=== PATIENT | female | born 1960 | race Caucasian/White ===

== ENCOUNTER 2019-06-21 10:25 | Emergency (ER) | payer MEDICARE, MEDICAID ==
[2019-06-21] MEDS ORDERED: PLAVIX75 MG PO (10:35)
[2019-06-21 11:00] LABS: HEMATOCRIT 42.1 % (37.0-47.0); HEMOGLOBIN 13.7 g/dl (12.0-16.0); IMMATURE GRANULOCYTES 0.3 % (0.0-5.0); MEAN CELL VOLUME 96.3 fL CALC (80.0-100.0); MEAN CORPUSCULAR HGB 31.4 pG CALC (26.0-32.0); MEAN CORPUSCULAR HGB CONC 32.5 g/L CALC (32.0-36.0); NEUT# 5.14 thou/uL (2.00-7.15); RED BLOOD COUNT 4.37 mill/uL (4.20-5.60); RED CELL DISTRI WIDTH 15.2 % (11.5-15.5)
[2019-06-21 11:23] LABS: ALBUMIN 4.9 g/dL (3.2-5.0); ALKALINE PHOSPHATASE 80 u/l (38-126); ANION GAP 16 (6-22 (CALC)); BILIRUBIN, TOTAL 0.4 mg/dL (0.0-1.4); BUN 13 mg/dL (7-17); BUN/CREATININE RATIO 13 (12-20 (CALC)); CARBON DIOXIDE 25 mmol/l (22-30); CHLORIDE 100 mmol/l (95-108); GFR 57 ML/MIN (>=60 (CALC)); GFR FOR AFR.AMER. > 60 ML/MIN (>=60 (CALC)); MAGNESIUM 1.9 mg/dL (1.6-2.3); POTASSIUM 4.5 mmol/l (3.5-5.1); SGOT/AST 87 u/l (14-36); SODIUM 137 mmol/l (137-146); TOTAL PROTEIN 8.3 g/dL (6.3-8.2)
[2019-06-21 11:36] LABS: MYOGLOBIN 421 ng/mL (0 - 62)
[2019-06-21 11:42] LABS: BARBITURATES NEGATIVE (NEGATIVE); COCAINE NEGATIVE (NEGATIVE); METHADONE NEGATIVE (NEGATIVE); OXCYCODONE NEGATIVE (NEGATIVE); TETRAHYDROCANNABIONOL NEGATIVE (NEGATIVE); TRICYLIC ANTIDEPRESSANTS NEGATIVE (NEGATIVE)
[2019-06-21 11:49] LABS: URINE BILIRUBIN - DIPSTICK NEGATIVE (NEGATIVE); URINE BLOOD DIPSTICK NEGATIVE (NEGATIVE); URINE COLOR YELLOW; URINE GLUCOSE - DIPSTICK NEGATIVE (NEGATIVE); URINE KETONE NEGATIVE (NEGATIVE); URINE LEUK ESTERASE NEGATIVE (NEGATIVE); URINE NITRITE - DIPSTICK NEGATIVE (Negative); URINE PROTEIN - DIPSTICK NEGATIVE (NEG-TRACE); URINE UROBILINOGEN - DIPSTICK 0.2 E.U./dL (0.2)
[2019-06-21 11:50] LABS: CPK 2405 u/l (30-165)
[2019-06-21] MEDS ORDERED: SYNTHROID150 MCG PO (12:48)
[2019-06-21 13:09] VITALS: BP 118/72
[2019-08-19] MEDS ORDERED: LISINOPRIL20 MG PO (09:58)
[2019-08-19] MEDS ORDERED: ASPIRIN81 MG PO (09:58)
== END 2019-06-21 13:13 | disposition home or self-care (01) ==
LOC: ED 10:25
PROVIDERS: Family Medicine
DX: E03.9 Hypothyroidism, unspecified (principal); R53.1 Weakness; J44.9 Chronic obstructive pulmonary disease, unspecified; F17.200 Nicotine dependence, unspecified, uncomplicated

== ENCOUNTER 2020-02-14 10:25 | Emergency (ER) | payer MEDICARE, MEDICAID ==
[~2020-02-14] VITALS: Ht 177.8 cm; Wt 100.0 kg
[~2020-02-14 10:25] MED LIST: ASPIRIN81 MG PO; LISINOPRIL20 MG PO; PLAVIX75 MG PO; SYNTHROID150 MCG PO
[2020-02-14] MEDS ORDERED: CLONAZEPAM0.5 M1 PO (10:43)
[2020-02-14 11:39] LABS: HEMATOCRIT 43.4 % (37.0-47.0); HEMOGLOBIN 13.6 g/dl (12.0-16.0); IMMATURE GRANULOCYTES 0.2 % (0.0-5.0); MEAN CELL VOLUME 93.5 fL CALC (80.0-100.0); MEAN CORPUSCULAR HGB 29.3 pG CALC (26.0-32.0); MEAN CORPUSCULAR HGB CONC 31.3 g/dL CAL (32.0-36.0); NEUT# 3.91 thou/uL (2.00-7.15); RED BLOOD COUNT 4.64 mill/uL (4.20-5.60); RED CELL DISTRI WIDTH 14.6 % (11.5-15.5)
[2020-02-14 11:54] LABS: ALBUMIN 4.7 g/dL (3.2-5.0); ALKALINE PHOSPHATASE 86 u/l (38-126); ANION GAP 11 (6-22 (CALC)); BILIRUBIN, TOTAL 0.3 mg/dL (0.0-1.4); BUN 11 mg/dL (8-23); BUN/CREATININE RATIO 16 (12-20 (CALC)); CARBON DIOXIDE 27 mmol/l (22-30); CHLORIDE 101 mmol/l (95-108); CREATININE 0.7 mg/dL (0.5-1.0); GFR > 60 ML/MIN (>=60 (CALC)); GFR FOR AFR.AMER. > 60 ML/MIN (>=60 (CALC)); POTASSIUM 4.4 mmol/l (3.5-5.1); SGOT/AST 21 u/l (9-36); SODIUM 134 mmol/l (137-146)
[2020-02-14 13:12] VITALS: BP 135/67
== END 2020-02-14 13:00 | disposition home or self-care (01) ==
LOC: ED 10:25
DX: R05 Cough (principal); R06.02 Shortness of breath; J44.9 Chronic obstructive pulmonary disease, unspecified; I10 Essential (primary) hypertension; F17.210 Nicotine dependence, cigarettes, uncomplicated; Z95.5 Presence of coronary angioplasty implant and graft; Z20.828 Contact with and (suspected) exposure to other viral communicable diseases

== ENCOUNTER 2021-02-16 15:11 | Emergency (ER) | payer MEDICARE, MEDICAID ==
[~2021-02-16] VITALS: Ht 152.4 cm; Wt 90.9 kg
[~2021-02-16 15:11] MED LIST changes: +CLONAZEPAM0.5 M1 PO
[2021-02-16 16:15] LABS: URINE BILIRUBIN - DIPSTICK NEGATIVE (NEGATIVE); URINE BLOOD DIPSTICK NEGATIVE (NEGATIVE); URINE COLOR YELLOW; URINE GLUCOSE - DIPSTICK NEGATIVE (NEGATIVE); URINE KETONE NEGATIVE (NEGATIVE); URINE LEUK ESTERASE NEGATIVE (NEGATIVE); URINE NITRITE - DIPSTICK NEGATIVE (Negative); URINE PROTEIN - DIPSTICK NEGATIVE (NEG-TRACE); URINE UROBILINOGEN - DIPSTICK 0.2 E.U./dL (0.2)
[2021-02-16 16:15] LABS: HEMATOCRIT 42.2 % (37.0-47.0); HEMOGLOBIN 13.8 g/dl (12.0-16.0); IMMATURE GRANULOCYTES 0.2 % (0.0-5.0); MEAN CELL VOLUME 91.1 fL CALC (80.0-100.0); MEAN CORPUSCULAR HGB 29.8 pG CALC (26.0-32.0); MEAN CORPUSCULAR HGB CONC 32.7 g/dL CAL (32.0-36.0); NEUT# 3.69 thou/uL (2.00-7.15); RED BLOOD COUNT 4.63 mill/uL (4.20-5.60); RED CELL DISTRI WIDTH 14.2 % (11.5-15.5)
[2021-02-16 16:27] LABS: ALBUMIN 4.2 g/dL (3.2-5.0); ALKALINE PHOSPHATASE 84 u/l (38-126); AMYLASE 47 u/l (30-110); ANION GAP 13 (6-22 (CALC)); BILIRUBIN, TOTAL 0.2 mg/dL (0.0-1.4); BUN 12 mg/dL (8-23); BUN/CREATININE RATIO 16 (12-20 (CALC)); CARBON DIOXIDE 27 mmol/l (22-30); CHLORIDE 99 mmol/l (95-108); CREATININE 0.7 mg/dL (0.5-1.0); ETHYL ALCOHOL 0 mg/dl (0-30); GFR > 60 ML/MIN (>=60 (CALC)); GFR FOR AFR.AMER. > 60 ML/MIN (>=60 (CALC)); LIPASE 74 u/l (23-300); POTASSIUM 4.1 mmol/l (3.5-5.1); SGOT/AST 19 u/l (9-36); SODIUM 135 mmol/l (137-146); TOTAL PROTEIN 7.9 g/dL (6.3-8.2)
[2021-02-16 16:28] LABS: ACT PARTIAL THROMBO TIME 24.3 SECONDS (20.0-32.5); INTERNATIONAL NORMALIZED RATIO 0.9 RATIO (0.7-1.3); PROTHROMBIN TIME 9.9 SECONDS (9.0-12.5)
[2021-02-16] MEDS ORDERED: LEVOTHYROXIN137 MCG PO (16:56)
[2021-02-16] MEDS ORDERED: METFORMIN500 M2 PO (16:57)
[2021-02-16] MEDS ORDERED: HYDROCO/APAP1 TA9 PO (17:26)
[2021-02-16 18:00] VITALS: BP 140/85
== END 2021-02-16 18:00 | disposition home or self-care (01) ==
LOC: ED 15:11
DX: S20.212A Contusion of left front wall of thorax, initial encounter (principal); S40.012A Contusion of left shoulder, initial encounter; S30.1XXA Contusion of abdominal wall, initial encounter; S16.1XXA Strain of muscle, fascia and tendon at neck level, initial encounter; I10 Essential (primary) hypertension; J44.9 Chronic obstructive pulmonary disease, unspecified; I25.10 Atherosclerotic heart disease of native coronary artery without angina pectoris; F17.210 Nicotine dependence, cigarettes, uncomplicated; W20.1XXA Struck by object due to collapse of building, initial encounter; Y92.029 Unspecified place in mobile home as the place of occurrence of the external cause; Z95.5 Presence of coronary angioplasty implant and graft
CPT/HCPCS: Q9967

== ENCOUNTER 2021-06-27 21:19 | Observation (INO) | payer MEDICARE, MEDICAID ==
[~2021-06-27] VITALS: Ht 152.4 cm; Wt 99.8 kg
[~2021-06-27 21:19] MED LIST changes: +HYDROCO/APAP1 TA9 PO; +LEVOTHYROXIN137 MCG PO; +METFORMIN500 M2 PO
[2021-06-27 21:53] LABS: HEMATOCRIT 42.8 % (37.0-47.0); HEMOGLOBIN 13.8 g/dl (12.0-16.0); IMMATURE GRANULOCYTES 0.2 % (0.0-5.0); MEAN CELL VOLUME 94.9 fL CALC (80.0-100.0); MEAN CORPUSCULAR HGB 30.6 pG CALC (26.0-32.0); MEAN CORPUSCULAR HGB CONC 32.2 g/dL CAL (32.0-36.0); NEUT# 3.85 thou/uL (2.00-7.15); RED BLOOD COUNT 4.51 mill/uL (4.20-5.60); RED CELL DISTRI WIDTH 14.3 % (11.5-15.5)
[2021-06-27 22:11] LABS: ALBUMIN 4.2 g/dL (3.2-5.0); ALKALINE PHOSPHATASE 83 u/l (38-126); ANION GAP 13 (6-22 (CALC)); BUN 12 mg/dL (8-23); BUN/CREATININE RATIO 14 (12-20 (CALC)); CARBON DIOXIDE 25 mmol/l (22-30); CHLORIDE 102 mmol/l (95-108); CREATININE 0.8 mg/dL (0.5-1.0); GFR > 60 ML/MIN (>=60 (CALC)); GFR FOR AFR.AMER. > 60 ML/MIN (>=60 (CALC)); POTASSIUM 3.7 mmol/l (3.5-5.1); SGOT/AST 30 u/l (9-36); SODIUM 136 mmol/l (137-146); TOTAL PROTEIN 7.7 g/dL (6.3-8.2)
[2021-06-27 22:13] LABS: D-DIMER 0.83 mg/L (0.19-0.60)
[2021-06-27 22:19] LABS: ACT PARTIAL THROMBO TIME 25.4 SECONDS (20.0-32.5); PROTHROMBIN TIME 10.1 SECONDS (9.0-12.5)
[2021-06-27 22:23] LABS: MYOGLOBIN 217 ng/mL (0 - 62)
[2021-06-27 22:33] LABS: BILIRUBIN, TOTAL 0.6 mg/dL (0.0-1.4)
[2021-06-28] VITALS (9 sets, daily range): BP systolic 93–133; BP diastolic 44–68
[2021-06-28 00:22] LABS: URINE BILIRUBIN - DIPSTICK NEGATIVE (NEGATIVE); URINE BLOOD DIPSTICK TRACE-INTACT (NEGATIVE); URINE COLOR YELLOW; URINE GLUCOSE - DIPSTICK NEGATIVE (NEGATIVE); URINE KETONE NEGATIVE (NEGATIVE); URINE LEUK ESTERASE NEGATIVE (NEGATIVE); URINE PROTEIN - DIPSTICK NEGATIVE (NEG-TRACE); URINE SPECIFIC GRAVITY 1.015; URINE UROBILINOGEN - DIPSTICK 0.2 E.U./dL (0.2)
[2021-06-28 00:26] LABS: URINE NITRITE - DIPSTICK NEGATIVE (Negative)
[2021-06-28] MEDS ORDERED: LEVOTHYROXIN150 MCG PO (02:13)
[2021-06-28] MEDS ORDERED: ASPIRIN325 MG PO (02:14)
[2021-06-28] MEDS ORDERED: NEXIUM40 M1 PO (02:15)
[2021-06-28] MEDS ORDERED: GLIPIZIDE ER2.5 MG PO (02:15)
[2021-06-28] MEDS ORDERED: NEURONTIN300 MG PO (02:16)
[2021-06-28] MEDS ORDERED: LIPITOR10 M1 PO (02:17)
[2021-06-28] MEDS ORDERED: VITAMIN7 PO (02:19)
[2021-06-28] MEDS ORDERED: BENADRYL 25MG C25 MG PO (02:21)
[2021-06-28] MEDS ORDERED: ATROVENT H17 MCG/ACT IN (02:22)
[2021-06-28] MEDS ORDERED: PROAIR HFA108 MCG/AC IN (02:23)
== END 2021-06-28 12:05 | disposition home or self-care (01) ==
LOC: ED 21:19 → ED-I 06-28 01:19 → ED 06-28 01:33 → ICU 06-28 01:34
PROVIDERS: Family Medicine; ADMIT Internal Medicine; ATTEND Internal Medicine
DX: I47.1 Supraventricular tachycardia (principal); J06.9 Acute upper respiratory infection, unspecified; I10 Essential (primary) hypertension; E11.40 Type 2 diabetes mellitus with diabetic neuropathy, unspecified; J44.9 Chronic obstructive pulmonary disease, unspecified; I25.10 Atherosclerotic heart disease of native coronary artery without angina pectoris; F17.200 Nicotine dependence, unspecified, uncomplicated; Z23 Encounter for immunization; Z79.84 Long term (current) use of oral hypoglycemic drugs; Z20.822 Contact with and (suspected) exposure to COVID-19
CPT/HCPCS: J1650; Q9967

== ENCOUNTER 2022-04-28 18:10 | Inpatient (IN) | payer MEDICARE, MEDICAID ==
[2022-04-28] VITALS (9 sets, daily range): BP systolic 127–144; BP diastolic 69–98
[~2022-04-28] VITALS: Ht 152.4 cm; Wt 113.6 kg
[~2022-04-28 18:10] MED LIST changes: +ASPIRIN325 MG PO; +ATROVENT H17 MCG/ACT IN; +BENADRYL 25MG C25 MG PO; +GLIPIZIDE ER2.5 MG PO; +LIPITOR10 M1 PO; +NEURONTIN300 MG PO; +NEXIUM40 M1 PO; +PROAIR HFA108 MCG/AC IN; +VITAMIN7 PO
--- NOTE | 2022-04-28 18:10 | NUR ---
PT TO ROOM VIA EMS FROM HOME
[2022-04-28 18:43] LABS: HEMATOCRIT 44.5 % (37.0-47.0); HEMOGLOBIN 14.5 g/dl (12.0-16.0); IMMATURE GRANULOCYTES 0.3 % (0.0-5.0); MEAN CELL VOLUME 96.7 fL CALC (80.0-100.0); MEAN CORPUSCULAR HGB 31.5 pG CALC (26.0-32.0); MEAN CORPUSCULAR HGB CONC 32.6 g/dL CAL (32.0-36.0); NEUT# 4.22 thou/uL (2.00-7.15); RED BLOOD COUNT 4.6 mill/uL (4.20-5.60); RED CELL DISTRI WIDTH 14.6 % (11.5-15.5)
--- NOTE | 2022-04-28 18:55 | NUR ---
REPORT RECEIVED FROM AMISHA MAX. PT RESTING ON STRETCHER NO DISTRESS.
[2022-04-28 18:57] LABS: ALBUMIN 4.5 g/dL (3.2-5.0); ALKALINE PHOSPHATASE 88 u/l (38-126); BILIRUBIN, TOTAL 0.6 mg/dL (0.0-1.4); BUN 10 mg/dL (8-23); BUN/CREATININE RATIO 16 (12-20 (CALC)); CARBON DIOXIDE 27 mmol/l (22-30); CHLORIDE 97 mmol/l (95-108); CREATININE 0.7 mg/dL (0.5-1.0); D-DIMER 0.92 mg/L (0.19-0.60); GFR FOR AFR.AMER. > 60 ML/MIN (>=60 (CALC)); GFR OTHER RACES > 60 ML/MIN (>=60 (CALC)); SGOT/AST 41 u/l (9-36); SODIUM 133 mmol/l (137-146); TOTAL PROTEIN 8.1 g/dL (6.3-8.2)
[2022-04-28 18:58] LABS: ANION GAP 14 (6-22 (CALC)); POTASSIUM 4.6 mmol/l (3.5-5.1)
[2022-04-28 19:00] LABS: PROTHROMBIN TIME 9.9 SECONDS (9.0-12.5)
--- NOTE | 2022-04-28 19:04 | NUR ---
REPORT GIVEN TO AMISHA MEI
[2022-04-28 19:09] LABS: MYOGLOBIN 59 ng/mL (0 - 62)
--- NOTE | 2022-04-28 19:11 | NUR ---
PT RETURN FROM RADIOLOGY. AUDIBLE WHEEZING NOTED. PT SOB WITH EXERSION
--- NOTE | 2022-04-28 21:13 | NUR ---
PT CONTINUES WITH AUDIBLE WHEEZING. PT REPORTS SOB AT THIS TIME. AWAITING MAGNESIUM FROM PLATING ENGINEER.
--- NOTE | 2022-04-28 21:49 | NUR ---
PT ENCOURAGD TO USE BSC. PT OOB AND AMBULATED TO ER AGAINST NURSING RECOMMENDATION.
--- NOTE | 2022-04-28 21:50 | NUR ---
PT REMOVED O2 VIA NC. PT REPORTS THAT SHE DOES NOT USE OXYGEN AT HOME.
[2022-04-28] MEDS ORDERED: MEDDOSEPAK PO (22:06)
--- NOTE | 2022-04-28 22:40 | NUR ---
PT RESTINGG WITH EYES CLOSED. OX SATURATION 85% TO 89% ON ROOM AIR. PT CONTINUES WITH WHEEZING. PT REPORTS THAT SHE IS FEELING BETTER THAN WHEN SHE FIRST CAME INTO THE ER TODAY. DR. HUITRON UPDATED THAT PT HAS LOW O2 SATURATION ON ROOM AIR AND PT HAS CONFIRMED THAT SHE DOES NOT USE OXYGEN AT HOME.
--- NOTE | 2022-04-28 22:44 | NUR ---
O2 REPLACED AT 2L DUE TO O2 SAT DECREASED TO 83%. PHYSICIAN TRACI.Bro
--- NOTE | 2022-04-28 22:54 | NUR ---
PT FOR ADMISSION. PT UPDATED AND AGREES WITH PLAN FOR ADMISSION.
[2022-04-28] MEDS ORDERED: INSULIN (23:05)
[2022-04-29] VITALS (11 sets, daily range): BP systolic 104–136; BP diastolic 46–88
--- NOTE | 2022-04-29 01:30 | NUR ---
PT OOB TO BR, AMBULATE WITH CANE. SOB WITH EXERTION. PT REFUSES BSC. AWAITING ADMIT ORDERS AND BED ASSIGNMENT.
--- NOTE | 2022-04-29 02:15 | NUR ---
Admission Note Report Given to: JOSHUA Transported by: X Wheelchair Stretcher Transported with: X Nurse Transporter X Patent IV X O2 Side Laster Staple Location: ICU X MS2 TELE BOX 4 IN USE. BEDSIDE REPORT GIVEN
--- NOTE | 2022-04-29 04:47 | NUR ---
pt arrived on unit at 0200, from ER bedside shift report given by ER nurse, no injuries noted, pt denied any pain or discomfort, admission assessment completed, all pt concerns and questions answered, pt oriented to room, call light within reach, pt stated no other questions needs addressed, she will try to rest.
--- NOTE | 2022-04-29 08:30 | NUR ---
PT SITTING ON RECLINER UPON ENETERING ROOM. STATES HEADAHCE. O2 IN PLACE VIA NC @2L. TITRATED PT OFF O2. STATING 88%. EDUCATED ON O2 SUPPLEMNTARY. PT INDICATED UNDERSTANDING. TELE MONTIOR IN PLACE, CONTINOUS MONITORING PER ED. UPDATED PT ON CURRENT PLAN OF CARE. BLOOD GLUCOSE 372, COVERED PER SLIDING SCALE. STATES NO QUESTIONS/ CONCERNS. FALL/SAFTEY PRECAUTION IN PLACE. CALL LIGHT WITHIN REACH.
[2022-04-29] MEDS ORDERED: LOPID600 MG PO (10:52)
[2022-04-29] MEDS ORDERED: HUMALOG100 UNIT SC (10:53)
[2022-04-29] MEDS ORDERED: TRESIBA100 UNIT/M SC (10:54)
[2022-04-29] MEDS ORDERED: ANORO ELLIPTA 61 AER IN (10:55)
[2022-04-29] MEDS ORDERED: METFORMIN HCL500 M1 PO (10:57)
[2022-04-29] MEDS ORDERED: TOPROL XL50 MG PO (10:58)
--- NOTE | 2022-04-29 12:11 | NUR ---
EDUCATED INSENTIVE SPRIROMETER. PT DEMONSTRATED UNDERSTANDING. BLOOD GLUCOSE: 379, COVERED PER SLIDING SCALE. FALL/SAFTEY PRECAUTION IN PLACE. CALL LIGHT WITHIN REACH
--- NOTE | 2022-04-29 16:46 | NUR ---
PT WATCHING TV. NON PRODUCTIVE COUGH NOTED. TELE MONITOR IN PLACE, CONTINOUS MONITORING PER ED. STATES NO NEEDS AT THIS TIME. FALL/SAFTEY PRECAUTION IN PLACE, CALL LIGHT WITHIN REACH
[2022-04-30] VITALS (11 sets, daily range): BP systolic 90–143; BP diastolic 38–87
[2022-04-30 04:53] LABS: HEMATOCRIT 41.4 % (37.0-47.0); HEMOGLOBIN 13.8 g/dl (12.0-16.0); MEAN CELL VOLUME 96.1 fL CALC (80.0-100.0); MEAN CORPUSCULAR HGB CONC 33.3 g/dL CAL (32.0-36.0); RED BLOOD COUNT 4.31 mill/uL (4.20-5.60); RED CELL DISTRI WIDTH 14.4 % (11.5-15.5)
[2022-04-30 05:09] LABS: ALBUMIN 4.3 g/dL (3.2-5.0); ALKALINE PHOSPHATASE 91 u/l (38-126); BILIRUBIN, TOTAL 0.4 mg/dL (0.0-1.4); BUN 22 mg/dL (8-23); BUN/CREATININE RATIO 29 (12-20 (CALC)); CARBON DIOXIDE 26 mmol/l (22-30); CHLORIDE 95 mmol/l (95-108); CREATININE 0.7 mg/dL (0.5-1.0); GFR FOR AFR.AMER. > 60 ML/MIN (>=60 (CALC)); GFR OTHER RACES > 60 ML/MIN (>=60 (CALC)); MAGNESIUM 2.2 mg/dL (1.6-2.3); SGOT/AST 32 u/l (9-36); SODIUM 129 mmol/l (137-146); TOTAL PROTEIN 7.5 g/dL (6.3-8.2)
[2022-04-30 05:23] LABS: ANION GAP 14 (6-22 (CALC)); POTASSIUM 6.3 mmol/l (3.5-5.1)
--- NOTE | 2022-04-30 05:41 | NUR ---
PATIENT SLEPT COMFORTABLY THRU THE NIGHT
--- NOTE | 2022-04-30 06:46 | NUR ---
notified nurse Abena of patients Glucose of 341 @0600.
--- NOTE | 2022-04-30 07:15 | NUR ---
PT RESTING IN BED. ALERT AND ORIENTATED X3. FACIAL STRUCTURE SYMMETRICAL. SPEECH CLEAR AND APPROPRIATE TO CONVERSATION. BREATHING LABORED, O2 VIA NASAL CANULA IN PLACE. STRONG EXTREMITIES X4, NO DRIFT NOTED. LUNG SOUNDS DIMINISHED, WHEEZES. ABDOMEN NON TENDER, ACTIVE BOWEL SOUNDS X4. PT DENIES PAIN DURING URINATION. PT DENIES ANY NEEDS AT THIS TIME. CALL LIGHT IN REACH. ALL SAFETY PRECAUTIONS IN PLACE AT THIS TIME.
--- NOTE | 2022-04-30 10:09 | NUR ---
room air pulse ox 94%
--- NOTE | 2022-04-30 10:11 | NUR ---
NEW #22G RH STARTED.GLUOCSE MONITORING REMAINS ELEVATED.IV INSULIN ADMINISTERED AT THIS TIME WITH WILLIAM DAILEY. PT EDUCATED ON HYPERKALEMIA PROTOCAL. PT VERBALIZED UNDERSTANDING.KAYEXALTE ADMINISTERED. DEXTROSE INFUSING PER ORDER. PT DENIES OF ANY NEEDS. ALL SAFETY PRECAUTIONS ARE IN PLACE WITH CALL LIGHT IN REACH
--- NOTE | 2022-04-30 10:15 | NUR ---
RT AT BEDSIDE. NEB ADMINISTERED. O2 REMOVED, O2 SAT 94%. RESPIRATIONS EVEN AND UNLAABORED. WILL CONTINUE TO MONITOR
--- NOTE | 2022-04-30 11:09 | NUR ---
NOTIFIED NURSE LANE ABOUT PATIENTS GLUCOSE OF 409 @1105 .
--- NOTE | 2022-04-30 12:11 | NUR ---
PT SITTING IN REYCLINER EATING LUNCH. RESPIRATIONS EVEN AND UNLABORED ON 2L NC. ATTEMPTED TO REMOVE O2, O2 93% ON ROOM AIR. PT C/O OF SOB ON EXCERTION AND TROUBLE CATCHING BREATH UPON RETURNING BACK TO CHAIR. 2L NC REMAINS IN PLACE.LUNG SOUNDS CLEAR BUT DIMINISHED. HEART RHYTHM NORMAL WITH TELE MONITORING IN PLACE.BOWEL SOUNDS ACTIVE, PT REPORTS BM X2. PT DENIES OF ANY PAINS OR DISCOMFORTS. GLUCOSE RESULTING IN 409. B.FLAVIA, ANRP INFORMED. SCHEDULE 10 UNITS ADMINISTERED, NO NEW ORDERS. ALL SAFTEY PRECAUTIONS ARE IN PLACE WITH CALL LIGHT IN REACH.
--- NOTE | 2022-04-30 13:47 | NUR ---
PT OUT OF SHOWER. INHALER PROVIDED. KLONOPIN ADMINISTERED PER PT REQUEST. TELE MONITORING REAPPLIED. DENIES OF ANY NEEDS. ALL SAFTEY PRECAUTIONS ARE IN PLACE WITH CALL LIGHT IN REACH
[2022-04-30 14:11] LABS: ANION GAP 18 (6-22 (CALC)); BUN 26 mg/dL (8-23); BUN/CREATININE RATIO 27 (12-20 (CALC)); CARBON DIOXIDE 27 mmol/l (22-30); CHLORIDE 91 mmol/l (95-108); GFR FOR AFR.AMER. > 60 ML/MIN (>=60 (CALC)); GFR OTHER RACES 56 ML/MIN (>=60 (CALC)); POTASSIUM 5.1 mmol/l (3.5-5.1); SODIUM 130 mmol/l (137-146)
--- NOTE | 2022-04-30 15:53 | NUR ---
PT SLEEPING IN LOW FOWLERS POSITION. RESPIRATIONS EVEN AND UNLABORED ON 2L NC. TELE MONITORING IN PLACE. #22G RH PATENT. NO S/S OF DISCOMFORTS. ALL SAFTEY PRECAUTIONS ARE IN PLACE WITH CALL LIGHT IN REACH
--- NOTE | 2022-04-30 19:30 | NUR ---
PATIENT SITTING UP ON HER BED ON RA WITH O2 SAT OF 92%$. PATIENT IS ALERT AND ORIENTEDX3.SOB WITH LITTLE OR NO EXHERSION. NON-PRODUCTIVE COUGH. UNABLE TO PROVIDE SPUTUM SPEC AT THIS TIME. TELE MONITOR IN PLACEWITH LAST READING SR-80'S. SALINE LOCK TO RIGHT HAND INTACT. LUNGS ARE DIMINISHED THROUGHOUT. ABD IS SOFT WITH ACTIVE BS. LAST BM WAS TODAY AND DENIES ANY DIFFICULTY WITH URINATIONS. NO PERIPHERAL EDEMA NOTED AT THIS TIME. PULSES ARE PALPABLE. SAETY PRFECAUTIONS REINFORCED. CALL LIGHT IN REACH. WILL CONT TO MONITOR.
--- NOTE | 2022-04-30 21:30 | NUR ---
GLUCOSE WAS 441-COVERED WITH HUMALOG 14UNITS PER HUMALOG SS COVERAGE PROTOCOL AND WITH LEVEMIR 20UNITS SQ SCHEDULED. PROVIDED WIH HS SNACK. MEDICATED WITH KLONOPIN 1MG PO FOR ANXIETY. SAFETY PRECAUTIONS REINFORCED. CALL LIGHT IN REACH. WILL CONT TO MONITOR.
--- NOTE | 2022-05-01 00:30 | NUR ---
PATIENT RESTING IN BED POSITIONED ON LEFT SIDE WITH O2 VIA NASAL CANNULA IN PLACE. EYES ARE CLOSED AND RESPS ARE EVEN AND UNLABORED. TELE MONITOR IN PLACE WITH LAST READING SR-79. CALL LIGHT IN REACH. WILL CONT TO MONITOR.
[2022-05-01 04:15] VITALS: BP 106/53
--- NOTE | 2022-05-01 05:04 | NUR ---
PATIENT RESTING IN BED WITH O2 VIA NASAL CANNULA IN PLACE. EYES CLOSED AND RESPS ARFE EVEN AND UNLABORED. TELE MONITOR IN PLACE. CALL LIGHT IN REACH. WILL CONT TO MONITOR.
[2022-05-01 05:50] LABS: ALBUMIN 4.3 g/dL (3.2-5.0); ALKALINE PHOSPHATASE 87 u/l (38-126); ANION GAP 12 (6-22 (CALC)); BUN 28 mg/dL (8-23); BUN/CREATININE RATIO 37 (12-20 (CALC)); CARBON DIOXIDE 28 mmol/l (22-30); CHLORIDE 95 mmol/l (95-108); CREATININE 0.8 mg/dL (0.5-1.0); GFR FOR AFR.AMER. > 60 ML/MIN (>=60 (CALC)); GFR OTHER RACES > 60 ML/MIN (>=60 (CALC)); MAGNESIUM 2.1 mg/dL (1.6-2.3); POTASSIUM 4.7 mmol/l (3.5-5.1); SGOT/AST 27 u/l (9-36); SODIUM 130 mmol/l (137-146); TOTAL PROTEIN 7.4 g/dL (6.3-8.2)
[2022-05-01 05:51] LABS: BILIRUBIN, TOTAL 0.2 mg/dL (0.0-1.4)
[2022-05-01 06:27] VITALS: BP 128/74
[2022-05-01 11:01] VITALS: BP 108/74
[2022-05-01] MEDS ORDERED: PREDNISONE10 MG PO (12:31)
[2022-05-01] MEDS ORDERED: MUCUS & CH100 MG/5 M PO (12:45)
[2022-05-01] MEDS ORDERED: VENTOLIN HFA108 MCG IN (12:50)
[2022-05-01 14:22] VITALS: BP 125/56
== END 2022-05-01 15:32 | disposition home health service (06) | DRG 190 ==
LOC: ED 18:10 → ED-I 22:40 → ED 22:57 → MS2 22:58
PROVIDERS: Family Medicine; Nurse Practitioner; ADMIT Internal Medicine; ATTEND Internal Medicine
DX: J43.9 Emphysema, unspecified (principal); J96.01 Acute respiratory failure with hypoxia; I10 Essential (primary) hypertension; E11.9 Type 2 diabetes mellitus without complications; I25.10 Atherosclerotic heart disease of native coronary artery without angina pectoris; E87.5 Hyperkalemia; F17.210 Nicotine dependence, cigarettes, uncomplicated; Z95.5 Presence of coronary angioplasty implant and graft; Z79.4 Long term (current) use of insulin; Z20.822 Contact with and (suspected) exposure to COVID-19
CPT/HCPCS: G0378; J1650; J3475; Q9967